=== PATIENT | female | born 1940 | race American Indian/Alaskan Native ===

== ENCOUNTER 2019-07-04 09:34 | Day surgery (SDC) | payer MEDICARE, MEDICAID ==
[2019-07-02 16:29] LABS: CLARITY,URINE CLEAR (Clear); COLOR,URINE YELLOW (Yellow); GLUCOSE, URINE NEGATIVE (Neg); KETONES,URINE TRACE mg/dl (Neg); LEUKOCYTE ESTERASE ,URINE TRACE (Neg); NITRITES, URINE NEGATIVE (Neg); OCCULT BLOOD,URINE NEGATIVE (Neg); PROTEIN,URINE NEGATIVE (Neg); UROBILINOGEN,URINE 0.2 E.U/dL (0.2-1.0)
[2019-07-02 16:37] LABS: UA COLLECTION TYPE CLN CATCH MIDSTREAM
[2019-07-02 16:38] LABS: BASOPHILS # (AUTO) 0.1 X10'3 (0-0.2); BASOPHILS % (AUTO) 0.9 % (0-1); EOSINOPHILS # (AUTO) 0.3 X10'3 (0-0.9); LYMPHOCYTES # (AUTO) 2.4 X10'3 (1.1-4.8); LYMPHOCYTES % (AUTO) 31.2 % (21-51); MEAN CORPUSCULAR HEMOGLOBIN 31.4 PG (27.0-31.0); MEAN CORPUSCULAR HGB CONC 33.6 g/dL (33.0-36.5); MEAN CORPUSCULAR VOLUME 93.6 FL (78-98); MONOCYTES # (AUTO) 0.6 X10'3 (0-0.9); MONOCYTES % (AUTO) 7.9 % (2-12); NEUTROPHILS # (AUTO) 4.3 X10'3 (1.8-7.7); PRE OP HEMATOCRIT 40.1 % (35.0-45.0); PRE OP HEMOGLOBIN 13.5 g/dL (12.0-16.0); PRE OP PLATELET COUNT 273 X10'3 (140-440); PRE OP PROTIME 10.1 SECONDS (9.0-12.0); RED BLOOD COUNT 4.29 X10'6 (4.20-5.60)
[2019-07-02 16:38] LABS: BACTERIA,URINE FEW /HPF (Neg); MUCUS STRANDS MANY /LPF (Neg); RBC,URINE NONE SEEN /HPF (0-2); SQUAMOUS EPITHELIAL CELL,UR FEW /LPF (FEW)
[2019-07-02 16:41] LABS: ALBUMIN 3.8 G/DL (3.4-5.0); ALKALINE PHOSPHATASE 94 IU/L (46-116); BLOOD UREA NITROGEN 11 MG/DL (7-18); BUN/CREATININE RATIO 15.3 (6.6-38.0); CALCIUM 8.8 MG/DL (8.5-10.1); CHLORIDE 106 MMOL/L (99-107); CREATININE 0.72 MG/DL (0.40-0.90); PRE OP ALT 22 U/L (30-65); PRE OP ANION GAP 9 (8-16); PRE OP AST 24 U/L (10-37); PRE OP BILIRUB, TOTAL 0.5 MG/DL (0.0-1.0); PRE OP GLUCOSE 87 MG/DL (70-104); PRE OP POTASSIUM 3.9 MMOL/L (3.4-5.1); PRE OP SODIUM 143 MMOL/L (135-145); TOTAL PROTEIN 7.7 G/DL (6.4-8.2); eGFR 79 ML/MIN
[2019-07-04] VITALS (7 sets, daily range): BP systolic 127–148; BP diastolic 61–101
[~2019-07-04] VITALS: Ht 152.4 cm; Wt 67.7 kg
[~2019-07-04 09:34] MED LIST: ALBU18HF2 INH; ALBU2.5V13 INH; ATR0.5NEB INH; DOCU-261 PO; IBUP-1985 PO; ONDA4TAB11 PO; PAPA1TAB10 PO; albuterol 2.5 MG/3 ML nebule NEB ONE; cefazolin/dext.iso 2gm/50ml 50 ML IV ONE; famotidine 20mg tablet PO ONE; ringers solution, lacted 1,000 ML IV ONE
[2019-07-04] MEDS ORDERED: BUPIVACAINE liposomal/PF 13.3 MG/ML vial IM ONE (13:46)
[2019-07-04] MEDS ORDERED: BUPIVAcaine/PF 2.5mg/ml (0.25%) 10ml vial ONE ×2 (13:46→13:51)
[2019-07-04] MEDS ORDERED: ceFAZolin 1000mg inj ONE (13:51)
[2019-07-04] MEDS ORDERED: midazolam 2 mg/2 ml injection ONE (13:54)
[2019-07-04] MEDS ORDERED: fentaNYL/PF 50MCG/1 ML 2ML syringe ONE (13:54)
[2019-07-04] MEDS ORDERED: ondansetron/PF 4mg/2ml inj ONE (13:55)
[2019-07-04] MEDS ORDERED: propofol inj 20 ML IV ONE (13:55)
[2019-07-04] MEDS ORDERED: rocuronium 10mg/ml inj IV ONE (13:55)
[2019-07-04] MEDS ORDERED: LIDOcaine 2% (20mg/ml) 5ml vial ONE (13:55)
[2019-07-04] MEDS ORDERED: phenylephrine 10mg/ml inj. ONE (14:18)
[2019-07-04] MEDS ORDERED: labetalol 20mg/4ml (5mg/ml) syringe IV ONE (14:39)
[2019-07-04] MEDS ORDERED: ringers solution, lacted 1,000 ML IV SCH (14:48)
[2019-07-04] MEDS ORDERED: fentaNYL/PF 50MCG/1 ML 2ML syringe IV PRN (14:50)
[2019-07-04] MEDS ORDERED: ondansetron/PF 4mg/2ml inj IV PRN ×2 (14:50→15:35)
[2019-07-04] MEDS ORDERED: labetalol 20mg/4ml (5mg/ml) syringe IV PRN (14:50)
[2019-07-04] MEDS ORDERED: hydrALAZINE 20mg/ml inj. IV PRN (14:50)
[2019-07-04] MEDS ORDERED: morphine 4 MG/ML inj SYRINge IV PRN ×2 (14:50)
--- NOTE | 2019-07-04 15:45 | NUR ---
Received from OR via BED , accompanied by Anesthesiologist DR TOWNSEND and report given by Anesthesiolgist. PATIENT WAKING UP, DENIES PAIN, V/S WNL, NEUROVASCULAR CHECKS INTACT, 20G PIV LUE, SCD ON, ABD BINDER WITH ISLAND DRESSING TO ABDOMEN CDI, F/C D/C
[2019-07-04] MEDS: fentaNYL/PF 50MCG/1 ML 2ML syringe IV PRN ×2 (16:03→16:10)
--- NOTE | 2019-07-04 16:35 | NUR ---
PATIENT A&OX4, DENIES PAIN, V/S WNL, NEUROVASCULAR CHECKS INTACT, 20G PIV LUE D/C, SCD OFF, ABD BINDER WITH ISLAND DRESSING TO ABDOMEN CDI, F/C D/C, I HAVE REVIEWED D/C INSTRUCTIONS WITH PATIENT AND FAMILY AND THEY HAVE VERBALIZED UNDERSTANDING. PATIENT D/C HOME WITH ALL BELONGINGS AND FAMILY GAVE TRANSPORT HOME.
== END 2019-07-04 16:35 | disposition home or self-care (01) ==
LOC: PAS 09:34
PROVIDERS: ATTEND Surgery
DX: K43.2 Incisional hernia without obstruction or gangrene (principal); J44.9 Chronic obstructive pulmonary disease, unspecified; K21.9 Gastro-esophageal reflux disease without esophagitis; I10 Essential (primary) hypertension; M19.90 Unspecified osteoarthritis, unspecified site; F17.210 Nicotine dependence, cigarettes, uncomplicated; F32.9 Major depressive disorder, single episode, unspecified; F41.9 Anxiety disorder, unspecified; Z88.8 Allergy status to other drugs, medicaments and biological substances; Z86.19 Personal history of other infectious and parasitic diseases; Z79.899 Other long term (current) drug therapy; Z93.3 Colostomy status; Z90.49 Acquired absence of other specified parts of digestive tract; Z88.7 Allergy status to serum and vaccine; Z87.01 Personal history of pneumonia (recurrent); Z79.01 Long term (current) use of anticoagulants
CPT/HCPCS: 36415; 49565; 71046; 80053; 81001; 82948; 85025; 85610; 85730; 87088; 94640; C1758; C9290; J0690; J2001; J2250; J2370; J2405; J2704; J3010; J3490; J7120; 93005; A4215; A4618; A6258; A7000

== ENCOUNTER 2019-10-01 20:46 | Inpatient (IN) | payer MEDICARE, MEDICAID ==
[~2019-10-01] VITALS: Ht 152.4 cm; Wt 65.9 kg
[~2019-10-01 20:46] MED LIST changes: +ONDA-103 PO; -ONDA4TAB11 PO; -albuterol 2.5 MG/3 ML nebule NEB ONE; -cefazolin/dext.iso 2gm/50ml 50 ML IV ONE; -famotidine 20mg tablet PO ONE; -ringers solution, lacted 1,000 ML IV ONE
[2019-10-01 21:20] LABS: BASOPHILS # (AUTO) 0.1 X10'3 (0-0.2); BASOPHILS % (AUTO) 1.1 % (0-1); EOSINOPHILS # (AUTO) 0.5 X10'3 (0-0.9); EOSINOPHILS % (AUTO) 6.4 % (0-6); HEMATOCRIT 42.6 % (35.0-45.0); HEMOGLOBIN 14.3 g/dl (12.0-16.0); LYMPHOCYTES # (AUTO) 3.3 X10'3 (1.1-4.8); LYMPHOCYTES % (AUTO) 38.4 % (21-51); MEAN CORPUSCULAR HGB CONC 33.6 g/dL (33.0-36.5); MEAN CORPUSCULAR VOLUME 92.2 FL (78-98); MEAN PLATELET VOLUME 7.4 FL (7.4-10.4); MONOCYTES # (AUTO) 0.7 X10'3 (0-0.9); MONOCYTES % (AUTO) 8.1 % (2-12); NEUTROPHILS # (AUTO) 3.9 X10'3 (1.8-7.7); PLATELET COUNT 283 X10'3 (140-440); RED BLOOD COUNT 4.61 X10'6 (4.20-5.60); RED CELL DISTRIBUTION WIDTH 13.7 % (11.5-14.5); WHITE BLOOD COUNT 8.5 X10'3 (4.5-11.0)
[2019-10-01 21:38] LABS: ALANINE AMINOTRANSFERASE 17 U/L (12-78); ALBUMIN/GLOBULIN RATIO 1.1 (1.1-1.5); ALKALINE PHOSPHATASE 121 IU/L (46-116); ANION GAP 7 (8-16); ASPARTATE AMINO TRANSFERASE 19 U/L (10-37); BILIRUBIN,TOTAL 0.5 MG/DL (0.1-1.0); BLOOD UREA NITROGEN 8 MG/DL (7-18); CALCIUM 9.5 MG/DL (8.5-10.1); CHLORIDE 106 MMOL/L (99-107); CREATININE 0.89 MG/DL (0.40-0.90); GLUCOSE 95 MG/DL (70-104); POTASSIUM 4.6 MMOL/L (3.5-5.1); SODIUM 141 MMOL/L (135-145); TOTAL CARBON DIOXIDE 28.4 MMOL/L (24-32); TOTAL PROTEIN 7.7 G/DL (6.4-8.2); eGFR 62 ML/MIN
[2019-10-01] MEDS ORDERED: ipratropium/albuterol 3ml nebule NEB ONE (22:05)
[2019-10-01] MEDS ORDERED: albuterol 2.5 MG/3 ML nebule NEB ONE (22:05)
[2019-10-01] MEDS ORDERED: methylPREDNISolone sod succ 125mg/2ml vial IV ONE (22:05)
[2019-10-01] MEDS ORDERED: levoFLOXACIN-Levaquin 750MG/D5 150 ML IV ONE (22:05)
[2019-10-01] MEDS ORDERED: magnesium 4gm in 100ml NS 100 ML IV PRN (22:15)
[2019-10-01] MEDS ORDERED: mag hydrox/Alum hydrox/simeth 30ml oral suspension PO PRN (22:15)
[2019-10-01] MEDS ORDERED: magnesium hydroxide 30ml (MOM) UD suspension PO PRN (22:15)
[2019-10-01] MEDS ORDERED: potassium Cl 20 mEq SR tablet PO PRN ×2 (22:15)
[2019-10-01] MEDS ORDERED: ipratropium/albuterol 3ml nebule NEB PRN (22:15)
[2019-10-01] MEDS ORDERED: ondansetron/PF 4mg/2ml inj IV PRN (22:15)
[2019-10-01] MEDS ORDERED: magnesium 2GM in 50ml NS 50 ML IV PRN (22:15)
[2019-10-01] MEDS ORDERED: magnesium Cl slow-release 64mg tablet PO PRN (22:15)
[2019-10-01] MEDS ORDERED: potassium CL 10mEq/100ml bag 100 ML IV PRN ×2 (22:15)
[2019-10-01 22:45] LABS: ABG BASE EXCESS -2.4 mmol/L (-2.0-3.0); ABG HCO3 22.6 mmol/L (22.0-26.0); ABG OXYGEN SATURATION 89.8 % (95-98); ABG PCO2 (T) 39.6 mmHg (35.0-45.0); ABG PH (T) 7.374 (7.350-7.450); ABG PO2 (T) 56.9 mmHg (83-108); FCOHb 0.8 % (0.5-1.5); FLOW 4 L/min; FO2Hb 89.1 % (94-100); TOTAL HEMOGLOBIN 14.5 G/dl (12.0-16.0)
[2019-10-02] VITALS: BP 143/84
--- NOTE | 2019-10-02 00:50 | NUR ---
PAGER ID: [phone] MESSAGE: Megan Case, 78 F, Ortho Rm [id number], admitted for COPD and L Pleural Effusion, complains of Abd pain. Allergic to hydrocodone, Tylenol. Not for Cardiac issues. Do we need to continue the troponin series? Martha Mistry RN Ortho- [phone]
--- NOTE | 2019-10-02 00:57 | NUR ---
Second time Paged Dr. Farah PAGER ID: [phone] MESSAGE: Megan Case, 78 F, Ortho Rm 4021I, admitted for COPD and L Pleural Effusion, complains of Abd pain. Allergic to hydrocodone, Tylenol. Not for Cardiac issues. Do we need to continue the troponin series? Martha Yip- [phone] Addendum: 10/02/19 at 0101 by Martha Del Castillo RN Dr. Farah called back and ordered to stop the troponin series along with SHANDA. Will put the order of Iboprofen for the patient's abdominal pain. No other orders were given at this time.
[2019-10-02] MEDS ORDERED: ibuprofen 200mg tablet PO PRN (01:00)
--- NOTE | 2019-10-02 03:51 | NUR ---
Respiratory Page: Megan Case Rm 0929t SOB, needs the PRN breathing treatment adilson. Thanks...Nieves ortho - [phone].
[2019-10-02 06:00] VITALS: BP 154/72
[2019-10-02 06:01] LABS: BASOPHILS % (AUTO) 0.5 % (0-1); EOSINOPHILS % (AUTO) 0.2 % (0-6); HEMATOCRIT 41.1 % (35.0-45.0); HEMOGLOBIN 13.6 g/dl (12.0-16.0); LYMPHOCYTES # (AUTO) 0.6 X10'3 (1.1-4.8); MEAN CORPUSCULAR HEMOGLOBIN 30.6 PG (27.0-31.0); MEAN CORPUSCULAR HGB CONC 33.2 g/dL (33.0-36.5); MEAN CORPUSCULAR VOLUME 92.2 FL (78-98); MONOCYTES % (AUTO) 0.6 % (2-12); NEUTROPHILS # (AUTO) 6.6 X10'3 (1.8-7.7); NEUTROPHILS % (AUTO) 90.7 % (42-75); PLATELET COUNT 257 X10'3 (140-440); RED BLOOD COUNT 4.46 X10'6 (4.20-5.60); RED CELL DISTRIBUTION WIDTH 13.9 % (11.5-14.5); WHITE BLOOD COUNT 7.2 X10'3 (4.5-11.0)
[2019-10-02 06:14] LABS: ALBUMIN 3.8 G/DL (3.4-5.0); ANION GAP 9 (8-16); BLOOD UREA NITROGEN 14 MG/DL (7-18); BUN/CREATININE RATIO 13.7 (6.6-38.0); CALCIUM 9.5 MG/DL (8.5-10.1); CHLORIDE 105 MMOL/L (99-107); CREATININE 1.02 MG/DL (0.40-0.90); GLUCOSE 166 MG/DL (70-104); MAGNESIUM 1.8 MG/DL (1.5-2.4); POTASSIUM 4.4 MMOL/L (3.5-5.1); SODIUM 140 MMOL/L (135-145); TOTAL CARBON DIOXIDE 25.6 MMOL/L (24-32); eGFR 53 ML/MIN
--- NOTE | 2019-10-02 06:15 | NUR ---
Patient in room ORTHO 4023. I have received report from Martha ROLDAN and had the opportunity to ask questions and assume patient care.
[2019-10-02] MEDS: enoxaparin 40mg/0.4ml syringe SQ SCH (06:58)
[2019-10-02] MEDS: K and/or MAG REPLACEMENT MC SCH ×2 (08:00→20:00)
[2019-10-02] MEDS ORDERED: predniSONE 20 mg tablet PO SCH (08:00)
[2019-10-02] MEDS: ipratropium/albuterol 3ml nebule NEB SCH ×4 (08:20→20:47)
[2019-10-02] MEDS ORDERED: levoFLOXACIN-Levaquin 750MG/D5 150 ML IV SCH (09:05)
--- NOTE | 2019-10-02 12:46 | NUR ---
Patient refused SVN tx @ this time. No Shortness of breath noted. PT PREFERRING TO EAT LUNCH Addendum: 10/02/19 at 1247 by Carlee Conner RT Amended: Links added.
[2019-10-02] MEDS: methylPREDNISolone sod succ 125mg/2ml vial IV SCH ×2 (14:25→19:54)
--- NOTE | 2019-10-02 14:32 | NUR ---
PAGER ID: [phone] MESSAGE: [id number]. Pt. is complaining of a headache. Do you care if I order her some Tylenol? Thank You. Marco ROLDAN [phone]
[2019-10-02] MEDS: acetaminophen 325mg tablet PO PRN (15:03)
--- NOTE | 2019-10-02 18:02 | NUR ---
[id number]-Evie. Pt. is asking if she can have a breathing treatment please. Thank You.
--- NOTE | 2019-10-02 18:12 | NUR ---
Problems reprioritized. Patient report given, questions answered & plan of care reviewed with Rosanne ROLDAN.
--- NOTE | 2019-10-02 18:13 | NUR ---
RECEIVED REPORT FROM NOE ROLDAN AND ASSUMED PATIENT CARE
[2019-10-02 18:16] VITALS: BP 151/98
[2019-10-02] MEDS: lactobacillus rhamnosus 10,000 MMU CELLS/CAPSULE PO SCH (19:54)
[2019-10-02] MEDS ORDERED: SUMAtriptan 25 MG tablet PO ONE (21:10)
[2019-10-02 22:00] VITALS: BP 155/96
[2019-10-03] MEDS: methylPREDNISolone sod succ 125mg/2ml vial IV SCH ×2 (02:23→08:01)
[2019-10-03 06:00] VITALS: BP 162/82
[2019-10-03 06:10] LABS: BASOPHILS % (AUTO) 0 % (0-1); EOSINOPHILS % (AUTO) 0 % (0-6); HEMATOCRIT 39.5 % (35.0-45.0); HEMOGLOBIN 13.2 g/dl (12.0-16.0); LYMPHOCYTES % (AUTO) 15.6 % (21-51); MEAN CORPUSCULAR HEMOGLOBIN 30.8 PG (27.0-31.0); MEAN CORPUSCULAR HGB CONC 33.4 g/dL (33.0-36.5); MEAN CORPUSCULAR VOLUME 92.3 FL (78-98); MEAN PLATELET VOLUME 7.9 FL (7.4-10.4); MONOCYTES # (AUTO) 0.2 X10'3 (0-0.9); NEUTROPHILS # (AUTO) 5.1 X10'3 (1.8-7.7); NEUTROPHILS % (AUTO) 81.4 % (42-75); PLATELET COUNT 249 X10'3 (140-440); RED BLOOD COUNT 4.28 X10'6 (4.20-5.60); RED CELL DISTRIBUTION WIDTH 13.9 % (11.5-14.5); WHITE BLOOD COUNT 6.2 X10'3 (4.5-11.0)
--- NOTE | 2019-10-03 06:10 | NUR ---
Patient in room ORTHO 4023. I have received report from Rosanne ROLDAN and had the opportunity to ask questions and assume patient care.
--- NOTE | 2019-10-03 06:11 | NUR ---
REPORT GIVEN TO ERIN ROLDAN
[2019-10-03 06:26] LABS: ALBUMIN 3.7 G/DL (3.4-5.0); ANION GAP 11 (8-16); BLOOD UREA NITROGEN 14 MG/DL (7-18); BUN/CREATININE RATIO 16.1 (6.6-38.0); CALCIUM 9.3 MG/DL (8.5-10.1); CHLORIDE 106 MMOL/L (99-107); CREATININE 0.87 MG/DL (0.40-0.90); GLUCOSE 164 MG/DL (70-104); MAGNESIUM 2.2 MG/DL (1.5-2.4); POTASSIUM 4.3 MMOL/L (3.5-5.1); SODIUM 144 MMOL/L (135-145); TOTAL CARBON DIOXIDE 27.5 MMOL/L (24-32); eGFR 63 ML/MIN
[2019-10-03] MEDS: ipratropium/albuterol 3ml nebule NEB SCH (07:00)
[2019-10-03] MEDS: K and/or MAG REPLACEMENT MC SCH (07:43)
[2019-10-03] MEDS: lactobacillus rhamnosus 10,000 MMU CELLS/CAPSULE PO SCH (07:57)
[2019-10-03] MEDS: enoxaparin 40mg/0.4ml syringe SQ SCH (07:58)
[2019-10-03] MEDS: acetaminophen 325mg tablet PO PRN (07:59)
[2019-10-03] MEDS ORDERED: levoFLOXACIN-Levaquin 750MG/D5 150 ML IV SCH (08:00)
[2019-10-03] MEDS ORDERED: LACT1CAP26 PO (09:34)
[2019-10-03] MEDS ORDERED: LEVO500T89 PO (09:34)
[2019-10-03] MEDS ORDERED: PRED10TA23 PO (09:34)
[2019-10-03] MEDS ORDERED: BUDE10.22 INH (09:35)
[2019-10-03 10:00] VITALS: BP 137/73
--- NOTE | 2019-10-03 11:31 | NUR ---
Student documentation: I have reviewed all interventions, assessments performed and documented by Renay Chavez. Student Medication Administration: For this medication-pass time frame, all medication were reviewed, dispensed, administered and documented per hospital policy by Renay Chavez.
--- NOTE | 2019-10-03 11:38 | NUR ---
Reviewed discharge instructions with pt and family. Pt verbalized understanding. Pt will call for follow up appt. All of pt's belongings were returned to pt. Pt was wheeled downstairs to be driven home by her daughter.
[2019-10-04] MEDS ORDERED: levoFLOXACIN-Levaquin 750MG/D5 150 ML IV SCH (08:00)
--- NOTE | 2019-10-04 15:04 | NUR ---
Case management DC follow up: LM/VM asking rtn questions/concerns, post DC status
== END 2019-10-03 11:40 | disposition home health service (06) | DRG 193 ==
LOC: ER 20:47 → ED HOLD 23:01 → ORTHO 4S 23:20 → CMPBEDREQ 23:49
PROVIDERS: ADMIT Hospitalist; ATTEND Family Medicine
DX: J18.9 Pneumonia, unspecified organism (principal); J96.20 Acute and chronic respiratory failure, unspecified whether with hypoxia or hypercapnia; J44.1 Chronic obstructive pulmonary disease with (acute) exacerbation; J90 Pleural effusion, not elsewhere classified; J44.0 Chronic obstructive pulmonary disease with (acute) lower respiratory infection; K57.90 Diverticulosis of intestine, part unspecified, without perforation or abscess without bleeding; F17.200 Nicotine dependence, unspecified, uncomplicated; G89.29 Other chronic pain; I10 Essential (primary) hypertension; Z82.49 Family history of ischemic heart disease and other diseases of the circulatory system; Z87.01 Personal history of pneumonia (recurrent); Z99.81 Dependence on supplemental oxygen; Z88.5 Allergy status to narcotic agent; Z88.7 Allergy status to serum and vaccine; Z88.8 Allergy status to other drugs, medicaments and biological substances; Z79.899 Other long term (current) drug therapy; Z71.6 Tobacco abuse counseling
CPT/HCPCS: 36415; 36600; 71045; 76604; 80048; 80053; 82803; 83605; 83735; 83880; 84145; 84484; 85018; 85025; 87040; 87081; 93005; 94640; 94760; 96365; 96375; 99285; G0378; J1650; J1956; J2930; J7512

== ENCOUNTER 2019-12-25 05:50 | Day surgery (SDC) | payer MEDICARE, MEDICAID ==
[2019-12-25] VITALS (9 sets, daily range): BP systolic 143–178; BP diastolic 83–105
[~2019-12-25] VITALS: Ht 152.4 cm; Wt 67.0 kg
[~2019-12-25 05:50] MED LIST changes: +BACI1TAB8 PO; -DOCU-261 PO; -IBUP-1985 PO; +IBUP-2417; +LACT1CAP26 PO; +MULT-240 PO; -PAPA1TAB10 PO; +cefazolin/dext.iso 2gm/100ml 100 ML IV ONE; +famotidine 20mg tablet PO ONE; +ringers solution, lacted 1,000 ML IV SCH
[2019-12-25] MEDS ORDERED: BUPIVAcaine/PF 2.5 mg/ml (0.25%) 30ml vial ONE (06:37)
[2019-12-25] MEDS ORDERED: LIDOcaine 1% 30ml preserv. free vial ONE (06:37)
[2019-12-25 07:19] LABS: BASOPHILS # (AUTO) 0.1 X10'3 (0-0.2); EOSINOPHILS # (AUTO) 0.5 X10'3 (0-0.9); EOSINOPHILS % (AUTO) 5.5 % (0-6); LYMPHOCYTES # (AUTO) 2.6 X10'3 (1.1-4.8); LYMPHOCYTES % (AUTO) 30.9 % (21-51); MEAN CORPUSCULAR HEMOGLOBIN 31.4 PG (27.0-31.0); MEAN CORPUSCULAR HGB CONC 33.7 g/dL (33.0-36.5); MEAN CORPUSCULAR VOLUME 93.1 FL (78-98); MEAN PLATELET VOLUME 7.2 FL (7.4-10.4); MONOCYTES # (AUTO) 0.7 X10'3 (0-0.9); MONOCYTES % (AUTO) 7.9 % (2-12); NEUTROPHILS # (AUTO) 4.6 X10'3 (1.8-7.7); NEUTROPHILS % (AUTO) 54.7 % (42-75); PRE OP HEMATOCRIT 39.1 % (35.0-45.0); PRE OP HEMOGLOBIN 13.2 g/dL (12.0-16.0); PRE OP PLATELET COUNT 243 X10'3 (140-440); RED CELL DISTRIBUTION WIDTH 14.2 % (11.5-14.5)
[2019-12-25 07:30] LABS: ALBUMIN 3.5 G/DL (3.4-5.0); ALKALINE PHOSPHATASE 96 IU/L (46-116); BLOOD UREA NITROGEN 14 MG/DL (7-18); BUN/CREATININE RATIO 15.7 (6.6-38.0); CALCIUM 8.8 MG/DL (8.5-10.1); CHLORIDE 108 MMOL/L (99-107); CREATININE 0.89 MG/DL (0.40-0.90); PRE OP ALT 19 U/L (30-65); PRE OP ANION GAP 8 (8-16); PRE OP AST 19 U/L (10-37); PRE OP BILIRUB, TOTAL 0.3 MG/DL (0.0-1.0); PRE OP GLUCOSE 100 MG/DL (70-104); PRE OP POTASSIUM 3.6 MMOL/L (3.4-5.1); PRE OP SODIUM 143 MMOL/L (135-145); TOTAL CARBON DIOXIDE 26.7 MMOL/L (24-32); TOTAL PROTEIN 6.9 G/DL (6.4-8.2); eGFR 62 ML/MIN
[2019-12-25] MEDS ORDERED: ringers solution, lacted 1,000 ML IV SCH (09:57)
[2019-12-25] MEDS ORDERED: meperidine/PF 25mg/ml syringe IV PRN ×3 (10:00)
[2019-12-25] MEDS ORDERED: ondansetron/PF 4mg/2ml inj IV PRN (10:00)
[2019-12-25] MEDS ORDERED: proCHLORperazine 10 MG/2 ml inj IV PRN (10:00)
[2019-12-25] MEDS ORDERED: morphine 2 MG/ML inj. syringe IV PRN (10:00)
[2019-12-25] MEDS ORDERED: morphine 4 MG/ML inj SYRINge IV PRN (10:00)
[2019-12-25] MEDS ORDERED: propofol inj 20 ML IV ONE (10:01)
[2019-12-25] MEDS ORDERED: fentaNYL /PF 50mcg/ml 5ml ampule ONE (10:01)
[2019-12-25] MEDS ORDERED: rocuronium 10mg/ml inj IV ONE (10:01)
[2019-12-25] MEDS ORDERED: midazolam 2 mg/2 ml injection ONE (10:01)
[2019-12-25] MEDS ORDERED: sevoflurane 250ml liquid IH ONE (10:03)
[2019-12-25] MEDS ORDERED: BUPIVAcaine/PF 2.5mg/ml (0.25%) 10ml vial ONE (10:28)
[2019-12-25] MEDS ORDERED: BUPIVACAINE liposomal/PF 13.3 MG/ML vial IM ONE (10:28)
[2019-12-25] MEDS ORDERED: ondansetron/PF 4mg/2ml inj ONE (10:51)
[2019-12-25] MEDS ORDERED: dexamethasone sod phosphate 4mg/ml inj. ONE (10:51)
[2019-12-25] MEDS ORDERED: sugammadex 200mg/2ml injection IV ONE (10:52)
--- NOTE | 2019-12-25 11:10 | NUR ---
Received from OR via BED , accompanied by Anesthesiologist DR HUANG and report given by Anesthesiolgist. PATIENT WAKING UP, DENIES PAIN, V/S WNL, NEUROVASCULAR CHECKS INTACT, 20G PIV LUE, SCD ON, BANDAIDS TO LAP SIGHTS OF ABDOMEN CDI.
--- NOTE | 2019-12-25 12:20 | NUR ---
PATIENT A&OX4, DENIES PAIN, V/S WNL, NEUROVASCULAR CHECKS INTACT, 20G PIV LUE D/C, SCD OFF, BANDAIDS TO LAP SIGHTS OF ABDOMEN CDI.. I HAVE REVIEWED D/C INSTRUCTIONS WITH PATIENT AND FAMILY HAVE VERBALIZED UNDERSTANDING.PATIENT WAS D/C HOME WITH ALL BELONGINGS AND FAMILY GAVE TRANSPORT HOME
== END 2019-12-25 12:20 | disposition home or self-care (01) ==
LOC: PAS 05:50
PROVIDERS: ATTEND Surgery
DX: K43.2 Incisional hernia without obstruction or gangrene (principal); K66.0 Peritoneal adhesions (postprocedural) (postinfection); J44.9 Chronic obstructive pulmonary disease, unspecified; I10 Essential (primary) hypertension; F32.9 Major depressive disorder, single episode, unspecified; F41.9 Anxiety disorder, unspecified; K21.9 Gastro-esophageal reflux disease without esophagitis; M19.90 Unspecified osteoarthritis, unspecified site; Z88.7 Allergy status to serum and vaccine; Z88.8 Allergy status to other drugs, medicaments and biological substances; Z79.899 Other long term (current) drug therapy; Z99.81 Dependence on supplemental oxygen; Z87.891 Personal history of nicotine dependence; Z90.49 Acquired absence of other specified parts of digestive tract; Z98.890 Other specified postprocedural states; Z93.3 Colostomy status; Z11.59 Encounter for screening for other viral diseases
CPT/HCPCS: 36415; 49320; 80053; 85025; 87635; C1758; C9290; C9399; J1100; J2001; J2175; J2250; J2405; J2704; J3010; J3490; J7120; A4215; A4618

== ENCOUNTER 2020-01-18 10:58 | Emergency (ER) | payer MEDICARE, MEDICAID ==
[~2020-01-18] VITALS: Ht 152.4 cm; Wt 65.9 kg
[~2020-01-18 10:58] MED LIST changes: -cefazolin/dext.iso 2gm/100ml 100 ML IV ONE; -famotidine 20mg tablet PO ONE; -ringers solution, lacted 1,000 ML IV SCH
[2020-01-18 12:11] LABS: BASOPHILS # (AUTO) 0.1 X10'3 (0-0.2); BASOPHILS % (AUTO) 0.9 % (0-1); EOSINOPHILS # (AUTO) 0.4 X10'3 (0-0.9); EOSINOPHILS % (AUTO) 5.4 % (0-6); HEMATOCRIT 39.4 % (35.0-45.0); HEMOGLOBIN 13.1 g/dl (12.0-16.0); LYMPHOCYTES # (AUTO) 2.2 X10'3 (1.1-4.8); LYMPHOCYTES % (AUTO) 28.9 % (21-51); MEAN CORPUSCULAR HGB CONC 33.2 g/dL (33.0-36.5); MEAN CORPUSCULAR VOLUME 93.4 FL (78-98); MEAN PLATELET VOLUME 7.2 FL (7.4-10.4); MONOCYTES # (AUTO) 0.7 X10'3 (0-0.9); MONOCYTES % (AUTO) 8.7 % (2-12); NEUTROPHILS # (AUTO) 4.3 X10'3 (1.8-7.7); NEUTROPHILS % (AUTO) 56.1 % (42-75); PLATELET COUNT 281 X10'3 (140-440); RED BLOOD COUNT 4.21 X10'6 (4.20-5.60); WHITE BLOOD COUNT 7.6 X10'3 (4.5-11.0)
[2020-01-18 12:14] LABS: PARTIAL THROMBOPLASTIN TIME 26 SECONDS (22-32)
[2020-01-18 12:17] LABS: ALANINE AMINOTRANSFERASE 22 U/L (12-78); ALBUMIN 3.7 G/DL (3.4-5.0); ALKALINE PHOSPHATASE 110 IU/L (46-116); ANION GAP 8 (8-16); ASPARTATE AMINO TRANSFERASE 20 U/L (10-37); BILIRUBIN,TOTAL 0.3 MG/DL (0.1-1.0); BLOOD UREA NITROGEN 11 MG/DL (7-18); BUN/CREATININE RATIO 12.1 (6.6-38.0); CALCIUM 8.9 MG/DL (8.5-10.1); CHLORIDE 105 MMOL/L (99-107); CREATININE 0.91 MG/DL (0.40-0.90); GLUCOSE 103 MG/DL (70-104); POTASSIUM 3.8 MMOL/L (3.5-5.1); SODIUM 141 MMOL/L (135-145); TOTAL CARBON DIOXIDE 27.9 MMOL/L (24-32); TOTAL PROTEIN 7.5 G/DL (6.4-8.2); eGFR 60 ML/MIN
[2020-01-18 12:39] LABS: CLARITY,URINE SLIGHTLY CLOUDY (Clear); COLOR,URINE YELLOW (Yellow); GLUCOSE, URINE NEGATIVE (Neg); KETONES,URINE NEGATIVE (Neg); LEUKOCYTE ESTERASE ,URINE NEGATIVE (Neg); NITRITES, URINE NEGATIVE (Neg); OCCULT BLOOD,URINE NEGATIVE (Neg); PROTEIN,URINE NEGATIVE (Neg)
[2020-01-18 12:40] LABS: UA COLLECTION TYPE CLN CATCH MIDSTREAM
[2020-01-18 12:46] LABS: BACTERIA,URINE FEW /HPF (Neg); MUCUS STRANDS MODERATE /LPF (Neg); RBC,URINE 0-2 /HPF (0-2); SQUAMOUS EPITHELIAL CELL,UR MODERATE /LPF (FEW)
[2020-01-18] MEDS ORDERED: methylPREDNISolone sod succ 125mg/2ml vial IV ONE (13:20)
[2020-01-18] MEDS ORDERED: albuterol 2.5 MG/3 ML nebule NEB ONE (13:20)
[2020-01-18] MEDS ORDERED: PRED20TA PO (13:24)
[2020-01-18] MEDS ORDERED: CLIN300C19 PO (13:24)
--- NOTE | 2020-01-18 13:48 | NUR ---
pain med requested,Dr. Enrique aware.
[2020-01-18] MEDS ORDERED: HYDROcodone/acetaminophen 10/325mg tab PO ONE (14:00)
[2020-01-18] MEDS ORDERED: HYDR-4353 PO (14:01)
[2020-01-18 14:30] VITALS: BP 162/89
== END 2020-01-18 14:32 | disposition home or self-care (01) ==
LOC: ER 10:59
DX: J44.1 Chronic obstructive pulmonary disease with (acute) exacerbation (principal); K04.7 Periapical abscess without sinus; I10 Essential (primary) hypertension; Z98.890 Other specified postprocedural states; Z88.5 Allergy status to narcotic agent; Z88.7 Allergy status to serum and vaccine; Z88.8 Allergy status to other drugs, medicaments and biological substances; Z79.2 Long term (current) use of antibiotics; Z79.899 Other long term (current) drug therapy
CPT/HCPCS: 36415; 71045; 80053; 81001; 83605; 84145; 85025; 85610; 85730; 87040; 87077; 87088; 87186; 94640; 96374; 99284; J2930; 94760

== ENCOUNTER 2022-05-27 08:06 | Day surgery (SDC) | payer MEDICARE, MEDICAID ==
[~2022-05-27] VITALS: Ht 152.4 cm; Wt 71.9 kg
[~2022-05-27 08:06] MED LIST changes: +CLIN300C19 PO
[2022-05-27] MEDS ORDERED: albumin 25% 100mL bottle x 1 IV PRN (08:30)
[2022-05-27] MEDS ORDERED: PRED10TA PO (08:36)
[2022-05-27] MEDS ORDERED: METO-384 PO (08:37)
[2022-05-27] MEDS ORDERED: SIMV-42 PO (08:37)
[2022-05-27] MEDS ORDERED: ASPI-103 PO (08:38)
[2022-05-27] MEDS ORDERED: RIVA20TA PO (08:38)
[2022-05-27 08:39] VITALS: BP 147/79
--- NOTE | 2022-05-27 10:30 | NUR ---
No fluid on left lung. Procedure cancelled
== END 2022-05-27 10:40 | disposition home or self-care (01) ==
LOC: SSTAY O 08:06
PROVIDERS: ATTEND Radiology Diagnostic Radiology
DX: J90 Pleural effusion, not elsewhere classified (principal); J44.9 Chronic obstructive pulmonary disease, unspecified; E78.5 Hyperlipidemia, unspecified; Z86.73 Personal history of transient ischemic attack (TIA), and cerebral infarction without residual deficits; F41.9 Anxiety disorder, unspecified; I10 Essential (primary) hypertension; Z98.890 Other specified postprocedural states; Z79.899 Other long term (current) drug therapy; Z88.7 Allergy status to serum and vaccine; Z88.8 Allergy status to other drugs, medicaments and biological substances; Z91.013 Allergy to seafood; Z82.49 Family history of ischemic heart disease and other diseases of the circulatory system
CPT/HCPCS: 76604

== ENCOUNTER 2023-02-25 13:55 | Inpatient (IN) | payer MEDICARE, MEDICAID ==
[~2023-02-25] VITALS: Ht 167.6 cm; Wt 80.0 kg
[~2023-02-25 13:55] MED LIST changes: -ALBU2.5V13 INH; +ASPI-103 PO; -CLIN300C19 PO; -IBUP-2417; -LACT1CAP26 PO; +METO-384 PO; -ONDA-103 PO; +PRED10TA PO; +RIVA20TA PO; +SIMV-42 PO
[2023-02-25] MEDS ORDERED: methylPREDNISolone sod succ 125mg/2ml vial IV ONE (14:15)
[2023-02-25] MEDS ORDERED: albuterol 2.5 MG/3 ML nebule NEB ONE (14:15)
[2023-02-25 15:10] LABS: BASOPHILS # (AUTO) 0.1 X10'3 (0-0.2); BASOPHILS % (AUTO) 1.1 % (0-1); EOSINOPHILS # (AUTO) 0.6 X10'3 (0-0.9); EOSINOPHILS % (AUTO) 7.3 % (0-6); HEMATOCRIT 39.7 % (35.0-45.0); HEMOGLOBIN 13.1 g/dl (12.0-16.0); LYMPHOCYTES # (AUTO) 3.3 X10'3 (1.1-4.8); LYMPHOCYTES % (AUTO) 41.3 % (21-51); MEAN CORPUSCULAR HEMOGLOBIN 30.1 PG (27.0-31.0); MEAN CORPUSCULAR HGB CONC 32.9 g/dL (33.0-36.5); MEAN CORPUSCULAR VOLUME 91.4 FL (78-98); MEAN PLATELET VOLUME 7.5 FL (7.4-10.4); MONOCYTES # (AUTO) 0.7 X10'3 (0-0.9); MONOCYTES % (AUTO) 8.4 % (2-12); NEUTROPHILS # (AUTO) 3.3 X10'3 (1.8-7.7); NEUTROPHILS % (AUTO) 41.9 % (42-75); PLATELET COUNT 227 X10'3 (140-440); RED BLOOD COUNT 4.34 X10'6 (4.20-5.60); RED CELL DISTRIBUTION WIDTH 14.9 % (11.5-14.5); WHITE BLOOD COUNT 7.9 X10'3 (4.5-11.0)
[2023-02-25 15:21] LABS: ALANINE AMINOTRANSFERASE 20 U/L (12-78); ALBUMIN 3.6 G/DL (3.4-5.0); ALBUMIN/GLOBULIN RATIO 1.1 (1.1-1.5); ALKALINE PHOSPHATASE 99 IU/L (46-116); ANION GAP 11 (8-16); ASPARTATE AMINO TRANSFERASE 21 U/L (10-37); BILIRUBIN,TOTAL 0.4 MG/DL (0.1-1.0); BLOOD UREA NITROGEN 7 MG/DL (7-18); CALCIUM 8.8 MG/DL (8.5-10.1); CHLORIDE 107 MMOL/L (99-107); CREATININE 0.87 MG/DL (0.40-0.90); GLUCOSE 116 MG/DL (70-104); POTASSIUM 3.5 MMOL/L (3.5-5.1); SODIUM 145 MMOL/L (135-145); TOTAL CARBON DIOXIDE 26.8 MMOL/L (24-32); TOTAL PROTEIN 6.8 G/DL (6.4-8.2); eGFR 63 ML/MIN
[2023-02-25] MEDS ORDERED: IPRA3AMP31 NEB (18:15)
[2023-02-25] MEDS ORDERED: ASPI-611 PO (18:15)
[2023-02-25] MEDS ORDERED: MULT-1074 PO (18:15)
[2023-02-25] MEDS ORDERED: SUMA50TA PO (18:15)
[2023-02-25] MEDS ORDERED: OMEP20CA16 PO (18:15)
[2023-02-25] MEDS ORDERED: BUDE10.22 PO (18:15)
[2023-02-25] MEDS ORDERED: ALBU18HF2 IH (18:15)
[2023-02-25] MEDS ORDERED: potassium Cl 40MEQ/1/2NS 520ml 520 ML IV PRN (18:25)
[2023-02-25] MEDS ORDERED: ipratropium/albuterol 3ml nebule NEB PRN ×2 (18:25→19:10)
[2023-02-25] MEDS ORDERED: potassium Cl 20 mEq SR tablet PO PRN ×2 (18:25)
[2023-02-25] MEDS ORDERED: magnesium 4gm in 100ml NS 100 ML IV PRN (18:25)
[2023-02-25] MEDS ORDERED: mag hydrox/Alum hydrox/simeth 30ml oral suspension PO PRN (18:25)
[2023-02-25] MEDS ORDERED: magnesium hydroxide 30ml (MOM) UD suspension PO PRN (18:25)
[2023-02-25] MEDS ORDERED: magnesium 2GM in 50ml NS 50 ML IV PRN (18:25)
[2023-02-25] MEDS ORDERED: acetaminophen 325mg tablet PO PRN (18:25)
[2023-02-25] MEDS ORDERED: magnesium Cl slow-release 64mg tablet PO PRN (18:25)
--- NOTE | 2023-02-25 19:01 | NUR ---
assumed care from danielle salvador rn
[2023-02-25] MEDS ORDERED: azithromycin 250mg tablet PO ONE (20:00)
[2023-02-25] MEDS ORDERED: ipratropium/albuterol 3ml nebule NEB SCH (20:00)
[2023-02-25] MEDS: K and/or MAG REPLACEMENT MC SCH (20:00)
[2023-02-25] MEDS: ipratropium/albuterol 3ml nebule NEB SCH (20:00)
[2023-02-25] MEDS ORDERED: CefTRIAXone/D5W-Rocephin 1gm 50 ML IV ONE (20:00)
[2023-02-25] MEDS ORDERED: CefTRIAXone/D5W-Rocephin 1gm 50 ML IV SCH (20:00)
[2023-02-25] MEDS: docusate sod 100mg capsule PO SCH (20:19)
[2023-02-25] MEDS: azithromycin 250mg tablet PO SCH (20:20)
[2023-02-25] MEDS: enoxaparin 40mg/0.4ml syringe SUBCUT SCH (20:20)
--- NOTE | 2023-02-25 20:28 | NUR ---
pt refusing covid and flu swabs at this time.
[2023-02-25 20:42] LABS: COLOR,URINE YELLOW (Yellow); GLUCOSE, URINE NEGATIVE (Neg); KETONES,URINE NEGATIVE (Neg); LEUKOCYTE ESTERASE ,URINE SMALL (Neg); NITRITES, URINE NEGATIVE (Neg); OCCULT BLOOD,URINE NEGATIVE (Neg); PROTEIN,URINE NEGATIVE (Neg); UROBILINOGEN,URINE 0.2 E.U/dL (0.2-1.0)
[2023-02-25 21:44] LABS: CLARITY,URINE SLIGHTLY CLOUDY (Clear); UA COLLECTION TYPE CLN CATCH MIDSTREAM
[2023-02-25 21:46] LABS: BACTERIA,URINE FEW /HPF (Neg); RBC,URINE NONE SEEN /HPF (0-2); SQUAMOUS EPITHELIAL CELL,UR FEW /LPF (FEW)
[2023-02-25 22:00] VITALS: BP 198/78
[2023-02-25 22:00] LABS: D-DIMER 1.38 MG/L FEU (0-0.50)
--- NOTE | 2023-02-25 22:00 | NUR ---
Pt refused MRSA swab upon admission " stating that she has already had to many covid swabs, clarification was made that this is different than a covid swab, she still continued to refuse
--- NOTE | 2023-02-25 22:00 | NUR ---
Patient in room ORTHO 4018. I have received report from Jossie ROLDAN and had the opportunity to ask questions and assume patient care.
[2023-02-26] MEDS: methylPREDNISolone sod succ/PF 40mg inj. IV SCH ×3 (00:30→15:29)
[2023-02-26] MEDS: acetaminophen 325mg tablet PO PRN ×2 (01:28→05:37)
[2023-02-26 02:00] VITALS: BP 184/98
--- NOTE | 2023-02-26 02:02 | NUR ---
Contacted provider for tylenol for headache. Provider advised to give tylenol 650mg q4 prn headache
--- NOTE | 2023-02-26 02:09 | NUR ---
Contacted Dr Perales for a blood pressure of initial 184/98, when retaking the bp was 169/95. Provider advised this was ok
[2023-02-26] MEDS: ipratropium/albuterol 3ml nebule NEB SCH ×4 (03:14→20:18)
[2023-02-26 04:38] LABS: BASOPHILS % (AUTO) 0.6 % (0-1); EOSINOPHILS % (AUTO) 0.1 % (0-6); HEMATOCRIT 39.6 % (35.0-45.0); HEMOGLOBIN 13.1 g/dl (12.0-16.0); LYMPHOCYTES # (AUTO) 1.1 X10'3 (1.1-4.8); LYMPHOCYTES % (AUTO) 21.1 % (21-51); MEAN CORPUSCULAR HEMOGLOBIN 30.1 PG (27.0-31.0); MEAN CORPUSCULAR VOLUME 91.2 FL (78-98); MEAN PLATELET VOLUME 7.6 FL (7.4-10.4); MONOCYTES % (AUTO) 0.7 % (2-12); NEUTROPHILS # (AUTO) 4.1 X10'3 (1.8-7.7); NEUTROPHILS % (AUTO) 77.5 % (42-75); PLATELET COUNT 214 X10'3 (140-440); RED BLOOD COUNT 4.34 X10'6 (4.20-5.60); RED CELL DISTRIBUTION WIDTH 14.6 % (11.5-14.5); WHITE BLOOD COUNT 5.3 X10'3 (4.5-11.0)
[2023-02-26 04:53] LABS: ALANINE AMINOTRANSFERASE 19 U/L (12-78); ALBUMIN 3.5 G/DL (3.4-5.0); ALKALINE PHOSPHATASE 97 IU/L (46-116); ANION GAP 10 (8-16); ASPARTATE AMINO TRANSFERASE 22 U/L (10-37); BILIRUBIN,TOTAL 0.4 MG/DL (0.1-1.0); BLOOD UREA NITROGEN 8 MG/DL (7-18); BUN/CREATININE RATIO 10.7 (10.0-20.0); CALCIUM 8.7 MG/DL (8.5-10.1); CHLORIDE 106 MMOL/L (99-107); CREATININE 0.75 MG/DL (0.40-0.90); GLUCOSE 162 MG/DL (70-104); MAGNESIUM 1.8 MG/DL (1.5-2.4); PHOSPHORUS 2.4 MG/DL (2.3-4.5); POTASSIUM 3.7 MMOL/L (3.5-5.1); SODIUM 142 MMOL/L (135-145); TOTAL CARBON DIOXIDE 26.4 MMOL/L (24-32); TOTAL PROTEIN 6.9 G/DL (6.4-8.2); eGFR 74 ML/MIN
--- NOTE | 2023-02-26 05:47 | NUR ---
Problems reprioritized. Patient report given, questions answered & plan of care reviewed with Stephanie ROLDAN.
[2023-02-26 06:30] VITALS: BP 163/90
--- NOTE | 2023-02-26 06:30 | NUR ---
Patient in room ORTHO 4018. I have received report from Elina and had the opportunity to ask questions and assume patient care.
--- NOTE | 2023-02-26 07:52 | NUR ---
PT IS PLACED IN COVID ISOLATION WHILE REFUSING COVID NASAL SWAB. PER HOSPITAL POLICY NO SVN'S ARE TO BE GIVEN TO PATIENTS IN COVID ISOLATION. MEDICATION NON ADMINISTERED AND NO SVN WILL BE GIVEN WHILE PT IS ISOLATED Addendum: 02/26/23 at 0756 by Sandhya Chapman RT Amended: Links added.
[2023-02-26] MEDS ORDERED: methylPREDNISolone sod succ/PF 40mg inj. IV ONE (08:00)
[2023-02-26] MEDS: K and/or MAG REPLACEMENT MC SCH ×2 (08:00→19:04)
[2023-02-26] MEDS: enoxaparin 40mg/0.4ml syringe SUBCUT SCH (09:32)
[2023-02-26] MEDS: azithromycin 250mg tablet PO SCH (09:32)
[2023-02-26] MEDS: docusate sod 100mg capsule PO SCH ×2 (09:32→19:03)
[2023-02-26] MEDS: pantoprazole 40mg Tablet.DR PO SCH (12:51)
[2023-02-26] MEDS: metoprolol succinate 25mg (24-HOUR) SR. Tablet PO SCH (12:51)
[2023-02-26] MEDS ORDERED: iohexol 350MG/ML 100ml bottle IV ONE (15:57)
[2023-02-26] MEDS: SUMAtriptan 25 MG tablet PO PRN ×2 (17:15→23:41)
[2023-02-26 18:00] VITALS: BP 165/94
--- NOTE | 2023-02-26 18:29 | NUR ---
Problems reprioritized. Patient report given, questions answered & plan of care reviewed with Mary CAMARENA.
--- NOTE | 2023-02-26 18:36 | NUR ---
Patient in room ORTHO 4018. I have received report from Stephanie ROLDAN and had the opportunity to ask questions and assume patient care.
[2023-02-26] MEDS: CefTRIAXone/D5W-Rocephin 1gm 50 ML IV SCH (20:42)
[2023-02-26 22:00] VITALS: BP 164/65
[2023-02-27] MEDS: methylPREDNISolone sod succ/PF 40mg inj. IV SCH ×4 (00:38→20:17)
[2023-02-27] MEDS: ipratropium/albuterol 3ml nebule NEB SCH ×4 (03:18→20:24)
[2023-02-27 03:31] VITALS: BP 149/67
--- NOTE | 2023-02-27 04:10 | NUR ---
CHIEF KNOWLEDGE OFFICER documentation: I have reviewed and agree with assessments performed and documented by ARMIN Patiño
[2023-02-27 04:16] LABS: BASOPHILS % (AUTO) 0.1 % (0-1); EOSINOPHILS % (AUTO) 0 % (0-6); HEMATOCRIT 40.2 % (35.0-45.0); HEMOGLOBIN 13.3 g/dl (12.0-16.0); LYMPHOCYTES % (AUTO) 10.8 % (21-51); MEAN CORPUSCULAR HEMOGLOBIN 30.1 PG (27.0-31.0); MEAN CORPUSCULAR HGB CONC 33.1 g/dL (33.0-36.5); MEAN PLATELET VOLUME 7.7 FL (7.4-10.4); MONOCYTES # (AUTO) 0.4 X10'3 (0-0.9); MONOCYTES % (AUTO) 3.8 % (2-12); NEUTROPHILS % (AUTO) 85.3 % (42-75); PLATELET COUNT 226 X10'3 (140-440); RED BLOOD COUNT 4.41 X10'6 (4.20-5.60); RED CELL DISTRIBUTION WIDTH 15.2 % (11.5-14.5); WHITE BLOOD COUNT 9.4 X10'3 (4.5-11.0)
[2023-02-27 04:17] LABS: ALANINE AMINOTRANSFERASE 20 U/L (12-78); ALBUMIN 3.6 G/DL (3.4-5.0); ALBUMIN/GLOBULIN RATIO 1.1 (1.1-1.5); ALKALINE PHOSPHATASE 86 IU/L (46-116); ANION GAP 10 (8-16); ASPARTATE AMINO TRANSFERASE 31 U/L (10-37); BILIRUBIN,TOTAL 0.3 MG/DL (0.1-1.0); BLOOD UREA NITROGEN 14 MG/DL (7-18); BUN/CREATININE RATIO 16.5 (10.0-20.0); CALCIUM 9.2 MG/DL (8.5-10.1); CHLORIDE 108 MMOL/L (99-107); CREATININE 0.85 MG/DL (0.40-0.90); GLUCOSE 144 MG/DL (70-104); MAGNESIUM 2.2 MG/DL (1.5-2.4); PHOSPHORUS 2.9 MG/DL (2.3-4.5); POTASSIUM 4.3 MMOL/L (3.5-5.1); SODIUM 145 MMOL/L (135-145); TOTAL CARBON DIOXIDE 27.5 MMOL/L (24-32); eGFR 64 ML/MIN
[2023-02-27 06:00] VITALS: BP 156/86
--- NOTE | 2023-02-27 06:26 | NUR ---
Problems reprioritized. Patient report given, questions answered & plan of care reviewed with Cristal CAMARENA.
--- NOTE | 2023-02-27 06:43 | NUR ---
I have received report from NICOL Han, and had the opportunity to ask questions and assume patient care. Patient has no acute distress at this time.
[2023-02-27] MEDS: K and/or MAG REPLACEMENT MC SCH ×2 (08:00→20:00)
[2023-02-27] MEDS: azithromycin 250mg tablet PO SCH (08:02)
[2023-02-27] MEDS: docusate sod 100mg capsule PO SCH (08:03)
[2023-02-27] MEDS: pantoprazole 40mg Tablet.DR PO SCH (08:03)
[2023-02-27] MEDS: aspirin 81mg tab.chew PO SCH (08:03)
[2023-02-27] MEDS: metoprolol succinate 25mg (24-HOUR) SR. Tablet PO SCH (08:03)
[2023-02-27] MEDS: enoxaparin 40mg/0.4ml syringe SUBCUT SCH (08:04)
[2023-02-27] MEDS: multivitamins, therapeutics tablet PO SCH (08:18)
[2023-02-27 10:00] VITALS: BP 156/84
[2023-02-27] MEDS: acetaminophen 325mg tablet PO PRN (11:41)
[2023-02-27] MEDS: SUMAtriptan 25 MG tablet PO PRN (16:04)
--- NOTE | 2023-02-27 17:41 | NUR ---
Problems reprioritized. Patient report given, questions answered & plan of care reviewed with Cristal CAMARENA. Agree with assessment
[2023-02-27 18:00] VITALS: BP 170/90
--- NOTE | 2023-02-27 18:28 | NUR ---
Problems reprioritized. Patient report given, questions answered & plan of care reviewed with NICOL Hernandez.
[2023-02-27] MEDS: CefTRIAXone/D5W-Rocephin 1gm 50 ML IV SCH (20:16)
[2023-02-27 22:00] VITALS: BP 168/85
[2023-02-28] MEDS: ipratropium/albuterol 3ml nebule NEB SCH ×2 (02:00→07:14)
--- NOTE | 2023-02-28 02:01 | NUR ---
OCCUPATIONAL THERAPY ASST documentation: I have reviewed and agree with assessment performed and documented by ARMIN.
[2023-02-28 05:31] LABS: ALANINE AMINOTRANSFERASE 22 U/L (12-78); ALBUMIN 3.4 G/DL (3.4-5.0); ALBUMIN/GLOBULIN RATIO 1.1 (1.1-1.5); ALKALINE PHOSPHATASE 73 IU/L (46-116); ANION GAP 6 (8-16); ASPARTATE AMINO TRANSFERASE 21 U/L (10-37); BILIRUBIN,TOTAL 0.2 MG/DL (0.1-1.0); BLOOD UREA NITROGEN 18 MG/DL (7-18); BUN/CREATININE RATIO 23.7 (10.0-20.0); CALCIUM 8.5 MG/DL (8.5-10.1); CHLORIDE 109 MMOL/L (99-107); CREATININE 0.76 MG/DL (0.40-0.90); GLUCOSE 131 MG/DL (70-104); MAGNESIUM 2.1 MG/DL (1.5-2.4); PHOSPHORUS 3.1 MG/DL (2.3-4.5); SODIUM 144 MMOL/L (135-145); TOTAL PROTEIN 6.5 G/DL (6.4-8.2); eGFR 73 ML/MIN
[2023-02-28 05:38] LABS: BASOPHILS % (AUTO) 0.1 % (0-1); EOSINOPHILS % (AUTO) 0 % (0-6); HEMOGLOBIN 12.8 g/dl (12.0-16.0); LYMPHOCYTES # (AUTO) 1.4 X10'3 (1.1-4.8); LYMPHOCYTES % (AUTO) 15.9 % (21-51); MEAN CORPUSCULAR HEMOGLOBIN 29.9 PG (27.0-31.0); MEAN CORPUSCULAR HGB CONC 32.7 g/dL (33.0-36.5); MEAN CORPUSCULAR VOLUME 91.3 FL (78-98); MEAN PLATELET VOLUME 7.8 FL (7.4-10.4); MONOCYTES # (AUTO) 0.5 X10'3 (0-0.9); MONOCYTES % (AUTO) 5.5 % (2-12); NEUTROPHILS # (AUTO) 6.9 X10'3 (1.8-7.7); NEUTROPHILS % (AUTO) 78.5 % (42-75); PLATELET COUNT 217 X10'3 (140-440); RED BLOOD COUNT 4.27 X10'6 (4.20-5.60); RED CELL DISTRIBUTION WIDTH 14.8 % (11.5-14.5); WHITE BLOOD COUNT 8.8 X10'3 (4.5-11.0)
[2023-02-28 06:00] VITALS: BP 179/96
--- NOTE | 2023-02-28 06:12 | NUR ---
Problems reprioritized. Patient report given, questions answered & plan of care reviewed with DANII CAMARENA.
[2023-02-28] MEDS: methylPREDNISolone sod succ/PF 40mg inj. IV SCH (07:08)
[2023-02-28] MEDS ORDERED: budesonide 0.5mg/2ml UD nebule IH SCH (08:00)
[2023-02-28] MEDS ORDERED: amLODIPine 5mg tablet PO SCH (08:00)
[2023-02-28] MEDS: K and/or MAG REPLACEMENT MC SCH (08:00)
[2023-02-28 08:07] VITALS: BP_SYST 179
[2023-02-28] MEDS: aspirin 81mg tab.chew PO SCH (08:07)
[2023-02-28] MEDS: azithromycin 250mg tablet PO SCH (08:07)
[2023-02-28] MEDS: metoprolol succinate 25mg (24-HOUR) SR. Tablet PO SCH (08:07)
[2023-02-28] MEDS: pantoprazole 40mg Tablet.DR PO SCH (08:07)
[2023-02-28] MEDS: enoxaparin 40mg/0.4ml syringe SUBCUT SCH (08:08)
[2023-02-28] MEDS: multivitamins, therapeutics tablet PO SCH (08:08)
[2023-02-28] MEDS: SUMAtriptan 25 MG tablet PO PRN (09:55)
[2023-02-28] MEDS ORDERED: NOR5T PO (10:48)
[2023-02-28] MEDS ORDERED: AZIT500T PO (10:48)
[2023-02-28] MEDS ORDERED: BUDE10.22 PO (10:48)
--- NOTE | 2023-02-28 11:00 | NUR ---
I have reviewed and agree with interventions, assessments, and documentation by Karley Blood LVN.
== END 2023-02-28 11:30 | disposition home or self-care (01) | DRG 193 ==
LOC: ER 13:56 → ED HOLD 18:44 → EDBEDREQ 20:51 → ORTHO 4S 21:51
PROVIDERS: ADMIT Family Medicine; ATTEND Family Medicine
PROC: B32T1ZZ Computerized Tomography (CT Scan) of Left Pulmonary Artery using Low Osmolar Contrast (ICD-10-PCS; principal; 2023-02-26)
PROC: B3201ZZ Computerized Tomography (CT Scan) of Thoracic Aorta using Low Osmolar Contrast (ICD-10-PCS; 2023-02-26)
PROC: B32S1ZZ Computerized Tomography (CT Scan) of Right Pulmonary Artery using Low Osmolar Contrast (ICD-10-PCS; 2023-02-26)
DX: J18.9 Pneumonia, unspecified organism (principal); J96.20 Acute and chronic respiratory failure, unspecified whether with hypoxia or hypercapnia; J44.1 Chronic obstructive pulmonary disease with (acute) exacerbation; I25.2 Old myocardial infarction; I11.9 Hypertensive heart disease without heart failure; I25.10 Atherosclerotic heart disease of native coronary artery without angina pectoris; Z20.822 Contact with and (suspected) exposure to COVID-19; J45.909 Unspecified asthma, uncomplicated; Z86.73 Personal history of transient ischemic attack (TIA), and cerebral infarction without residual deficits; Z59.00 Homelessness unspecified; Z88.5 Allergy status to narcotic agent; Z88.8 Allergy status to other drugs, medicaments and biological substances
CPT/HCPCS: 36415; 71045; 71275; 80053; 81001; 82948; 83735; 83880; 84100; 84484; 85025; 85379; 87081; 87088; 87502; 87503; 87811; 94640; 94760; 99285; A4615; G0378; J0696; J1650; J2920; J2930; J3490; Q9967

== ENCOUNTER 2023-05-25 19:42 | Emergency (ER) | payer MEDICARE, MEDICAID ==
[~2023-05-25] VITALS: Ht 154.9 cm; Wt 70.0 kg
[~2023-05-25 19:42] MED LIST changes: +ALBU18HF2 IH; -ALBU18HF2 INH; -ASPI-103 PO; +ASPI-611 PO; -BACI1TAB8 PO; +BUDE10.22 PO; +IPRA3AMP31 NEB; +MULT-1074 PO; -MULT-240 PO; +NOR5T PO; +OMEP20CA16 PO; -PRED10TA PO; -RIVA20TA PO; +SUMA50TA PO
[2023-05-25 19:53] VITALS: BP 163/85; PULSE 113; RESP 18; TEMP 98.3; O2SAT 94
== END 2023-05-26 01:37 | disposition left against medical advice (07) ==
LOC: ER 19:43
DX: R63.0 Anorexia (principal); Z53.21 Procedure and treatment not carried out due to patient leaving prior to being seen by health care provider
CPT/HCPCS: 99281